=== PATIENT | female | born 1960 | race Caucasian/White ===

== ENCOUNTER 2021-06-02 10:20 | Emergency (ER) | payer MEDICAID, MEDICARE ==
[2021-06-02] MEDS ORDERED: HYDROmorphone 1 MG/ML Syringe IM ONE (11:04)
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
== END 2021-06-02 11:38 | disposition home or self-care (01) ==
LOC: JP.ED 10:20
DX: G89.29 Other chronic pain (principal); M54.50 Low back pain, unspecified; Z88.0 Allergy status to penicillin; Z88.5 Allergy status to narcotic agent; Z88.8 Allergy status to other drugs, medicaments and biological substances; Z72.0 Tobacco use
CPT/HCPCS: 96372; 99283; J1170